=== PATIENT | female | born 1950 | race Caucasian/White ===

== ENCOUNTER 2021-08-06 15:35 | Emergency (ER) | payer MEDICARE ==
[~2021-08-06] VITALS: Ht 160 cm; Wt 108.9 kg
[2021-08-06 16:12] LABS: BASOPHILS % 0.5 % (0.0-1.0); EOSINOPHILS # (AUTO) 0.2 (0.0-0.4); EOSINOPHILS % 2.8 % (0.0-6.0); HEMATOCRIT 39.7 % (34.2-44.1); HEMOGLOBIN 12.7 g/dL (12.0-16.0); LYMPHOCYTES # (AUTO) 1.2 (1.0-3.2); LYMPHOCYTES % 15.4 % (18.0-39.1); MEAN CORPUSCULAR HEMOGLOBIN 28.9 pg (28-32); MEAN CORPUSCULAR VOLUME 90.4 fL (81-99); MONOCYTES # (AUTO) 0.7 (0.2-0.8); MONOCYTES % 8.4 % (4.4-11.3); NEUTROPHILS # (AUTO) 5.8 (2.1-6.9); NEUTROPHILS % 72.5 % (38.7-80.0); PLATELET COUNT 266 x10e3/uL (140-360); RED BLOOD COUNT 4.39 x10e6/uL (3.6-5.1); RED CELL DISTRIBUTION WIDTH 13.6 % (11.7-14.4)
[2021-08-06 16:32] LABS: ALBUMIN 3.7 g/dL (3.5-5.0); ANION GAP 14.4 mmol/L (8-16); CALCIUM 9.1 mg/dL (8.4-10.2); CREATININE, SERUM 0.89 mg/dL (0.57-1.11); POTASSIUM 3.4 mmol/L (3.5-5.1)
[2021-08-06 17:16] LABS: CLARITY,URINE CLEAR (CLEAR); COLOR,URINE YELLOW (YELLOW); KETONES,URINE NEGATIVE (NEGATIVE); LEUKOCYTE ESTERASE ,URINE NEGATIVE (NEGATIVE); NITRITE,URINE NEGATIVE (NEGATIVE); PROTEIN,URINE DIPSTICK NEGATIVE (NEGATIVE); URINE UROBILINOGEN 0.2 mg/dL (0.2 - 1)
[2021-08-06 17:27] LABS: BACTERIA,URINE FEW /HPF
[2021-08-06 17:28] LABS: EPITHELIAL CELLS,URINE MODERATE /LPF
[2021-08-06 20:36] VITALS: BP 155/65
== END 2021-08-06 19:15 | disposition home or self-care (01) ==
LOC: ER 15:51
DX: R42 Dizziness and giddiness (principal); R73.9 Hyperglycemia, unspecified; I10 Essential (primary) hypertension; Z85.3 Personal history of malignant neoplasm of breast
CPT/HCPCS: 36415; 70450; 80053; 81001; 83880; 84484; 85025; 93005; 99284

== ENCOUNTER 2022-01-10 01:15 | Emergency (ER) | payer MEDICARE ==
[~2022-01-10] VITALS: Ht 160 cm; Wt 108.9 kg
[2022-01-10] MEDS ORDERED: HYDRALAZINE HCL 10 MG TAB PO ONE (02:15)
[2022-01-10 02:35] VITALS: BP 169/74
== END 2022-01-10 02:41 | disposition home or self-care (01) ==
LOC: ER 01:19
DX: I10 Essential (primary) hypertension (principal); R07.89 Other chest pain; R73.03 Prediabetes; Z85.3 Personal history of malignant neoplasm of breast
CPT/HCPCS: 93005; 99282

== ENCOUNTER 2023-04-27 09:32 | Observation (INO) | payer MEDICARE ==
[~2023-04-27] VITALS: Ht 160 cm; Wt 108.9 kg
[2023-04-27] MEDS ORDERED: METOPROLOL TARTRATE INJ 1 MG/ML VIAL IV ONE (10:00)
[2023-04-27] MEDS ORDERED: DILTIAZEM HCL 5 MG/ML 5 ML VIAL IV ONE (10:00)
[2023-04-27] MEDS ORDERED: SODIUM CHLORIDE FLUSH 10 ML SYR IV PRN (10:00)
[2023-04-27 10:20] LABS: BASOPHILS % 0.4 % (0.0-1.0); EOSINOPHILS # (AUTO) 0.3 (0.0-0.4); EOSINOPHILS % 3.1 % (0.0-6.0); HEMATOCRIT 33.4 % (34.2-44.1); HEMOGLOBIN 11.2 g/dL (12.0-16.0); LYMPHOCYTES # (AUTO) 1.3 (1.0-3.2); MEAN CORPUSCULAR HEMOGLOBIN 28.8 pg (28-32); MEAN CORPUSCULAR HGB CONC 33.5 g/dL (31-35); MEAN CORPUSCULAR VOLUME 85.9 fL (81-99); MONOCYTES # (AUTO) 1.2 (0.2-0.8); MONOCYTES % 12.4 % (4.4-11.3); NEUTROPHILS # (AUTO) 6.5 (2.1-6.9); NEUTROPHILS % 69.4 % (38.7-80.0); PLATELET COUNT 349 x10e3/uL (140-360); RED BLOOD COUNT 3.89 x10e6/uL (3.6-5.1); RED CELL DISTRIBUTION WIDTH 14.6 % (11.7-14.4)
[2023-04-27 10:42] LABS: ALBUMIN 2.7 g/dL (3.5-5.0); ALBUMIN/GLOBULIN RATIO 0.8 (0.8-2.0); ANION GAP 18.8 mmol/L (8-16); CALCIUM 7.9 mg/dL (8.4-10.2); CREATININE, SERUM 0.78 mg/dL (0.57-1.11); POTASSIUM 3.8 mmol/L (3.5-5.1)
[2023-04-27] MEDS ORDERED: SODIUM CHLORIDE FLUSH 10 ML SYR INJ PRN (11:30)
[2023-04-27] MEDS ORDERED: ONDANSETRON HCL INJ 2MG/ML 2ML 2 MG/ML VIAL IV PRN (11:30)
[2023-04-27] MEDS ORDERED: ASPIRIN 81 MG CHEW TAB PO ONE (11:30)
[2023-04-27 15:30] VITALS: BP 140/65; PULSE 99; RESP 16; TEMP 97.9; O2SAT 99
[2023-04-27 17:41] VITALS: BP 151/92; PULSE 86; RESP 16; TEMP 97.9; O2SAT 99
[2023-04-27 19:33] VITALS: BP 151/92; PULSE 86; RESP 16; TEMP 97.9; O2SAT 99
[2023-04-27 20:00] VITALS: BP 176/97; PULSE 73; RESP 20; TEMP 97.7; O2SAT 100
[2023-04-27] MEDS ORDERED: AMIODARONE HCL200 MG PO (20:09)
[2023-04-27] MEDS ORDERED: METOPROLOL TART50 MG PO (20:09)
[2023-04-27] MEDS ORDERED: ATORVASTATIN CA20 MG PO (20:09)
[2023-04-27] MEDS ORDERED: FUROSEMIDE40 MG PO (20:09)
[2023-04-27] MEDS ORDERED: DIGOXIN125 MCG PO (20:09)
[2023-04-27] MEDS ORDERED: D3-5000125 MCG (20:09)
[2023-04-27] MEDS ORDERED: ELIQUIS5 MG PO (20:09)
[2023-04-27] MEDS ORDERED: [UNRECOGNIZED DRUG - OTHER] (20:09)
[2023-04-27] MEDS ORDERED: VITAMIN B-121000 MC2 PO (20:09)
[2023-04-27] MEDS ORDERED: VITAMIN D32400 UNIT/ (20:09)
[2023-04-27] MEDS ORDERED: PROTONIX20 MG PO (20:09)
[2023-04-27 21:00] VITALS: BP 176/97; PULSE 73; RESP 20; TEMP 97.7; O2SAT 100
[2023-04-28 04:00] VITALS: BP 128/75; PULSE 75; RESP 16; TEMP 97.9; O2SAT 98
[2023-04-28 06:13] LABS: BASOPHILS # (AUTO) 0.1 (0.0-0.1); BASOPHILS % 0.6 % (0.0-1.0); EOSINOPHILS # (AUTO) 0.4 (0.0-0.4); EOSINOPHILS % 4.1 % (0.0-6.0); HEMATOCRIT 35.2 % (34.2-44.1); HEMOGLOBIN 11.2 g/dL (12.0-16.0); LYMPHOCYTES # (AUTO) 1.6 (1.0-3.2); LYMPHOCYTES % 18.2 % (18.0-39.1); MEAN CORPUSCULAR HEMOGLOBIN 28.5 pg (28-32); MEAN CORPUSCULAR HGB CONC 31.8 g/dL (31-35); MEAN CORPUSCULAR VOLUME 89.6 fL (81-99); MONOCYTES % 11.5 % (4.4-11.3); NEUTROPHILS # (AUTO) 5.7 (2.1-6.9); NEUTROPHILS % 64.9 % (38.7-80.0); PLATELET COUNT 342 x10e3/uL (140-360); RED BLOOD COUNT 3.93 x10e6/uL (3.6-5.1); RED CELL DISTRIBUTION WIDTH 14.5 % (11.7-14.4)
[2023-04-28 07:21] LABS: ALBUMIN 2.8 g/dL (3.5-5.0); ALBUMIN/GLOBULIN RATIO 0.9 (0.8-2.0); ANION GAP 17.1 mmol/L (8-16); CALCIUM 8.1 mg/dL (8.4-10.2); CREATININE, SERUM 0.69 mg/dL (0.57-1.11); POTASSIUM 3.1 mmol/L (3.5-5.1)
[2023-04-28 08:14] VITALS: BP 161/80; PULSE 75; RESP 19; TEMP 97.8; O2SAT 100
[2023-04-28] MEDS: CYANOCOBALAMIN 1,000 MCG TAB PO SCH (09:44)
[2023-04-28] MEDS: APIXABAN 5 MG TABLET PO SCH ×2 (09:45→16:14)
[2023-04-28] MEDS: PANTOPRAZOLE SOD 40 MG TABEC PO SCH (09:46)
[2023-04-28] MEDS: DIGOXIN 0.125 MG TAB PO SCH (09:46)
[2023-04-28] MEDS: METOPROLOL TARTRATE 50 MG TAB PO SCH ×2 (09:46→16:14)
[2023-04-28] MEDS: FUROSEMIDE 40 MG TAB PO SCH (09:46)
[2023-04-28] MEDS: AMIODARONE HCL 200 MG TAB PO SCH ×2 (09:46→16:14)
[2023-04-28] MEDS ORDERED: HYDRALAZINE HCL 20 MG/ML VIAL IV PRN (10:45)
[2023-04-28 11:41] VITALS: BP 100/68; PULSE 68; RESP 17; TEMP 98.4; O2SAT 100
[2023-04-28] MEDS ORDERED: POTASSIUM CHLORIDE 20 MEQ TAB CR PO ONE (12:45)
[2023-04-28] MEDS ORDERED: ACETAMINOPHEN/CODEINE 300MG - 30MG TAB PO PRN (13:00)
[2023-04-28] MEDS ORDERED: ACETAMINOPHEN 325 MG TAB PO PRN (13:00)
[2023-04-28] MEDS ORDERED: POTASSIUM BICARBONATE/CIT AC 20 MEQ TABLET.EFF PO ONE (13:30)
[2023-04-28] MEDS ORDERED: ONDANSETRON HCL 4 MG ORAL DISINTEGRATING TAB PO PRN (13:30)
[2023-04-28 15:49] VITALS: BP 146/75; PULSE 79; RESP 17; TEMP 98.1; O2SAT 99
[2023-04-28 20:00] VITALS: BP 139/75; PULSE 71; RESP 18; TEMP 97.8; O2SAT 98
[2023-04-28] MEDS ORDERED: ATORVASTATIN 40 MG TAB PO SCH (21:00)
[2023-04-29] VITALS: BP 142/78; PULSE 76; RESP 17; TEMP 98.4; O2SAT 100
[2023-04-29 04:56] VITALS: BP 149/71; PULSE 81; RESP 17; TEMP 98.1; O2SAT 97
[2023-04-29 07:53] LABS: BASOPHILS % 0.3 % (0.0-1.0); EOSINOPHILS # (AUTO) 0.2 (0.0-0.4); EOSINOPHILS % 1.8 % (0.0-6.0); HEMATOCRIT 36.4 % (34.2-44.1); HEMOGLOBIN 11.9 g/dL (12.0-16.0); LYMPHOCYTES # (AUTO) 1.6 (1.0-3.2); LYMPHOCYTES % 16.9 % (18.0-39.1); MEAN CORPUSCULAR HEMOGLOBIN 29.1 pg (28-32); MEAN CORPUSCULAR HGB CONC 32.7 g/dL (31-35); MONOCYTES # (AUTO) 0.8 (0.2-0.8); MONOCYTES % 8.3 % (4.4-11.3); NEUTROPHILS # (AUTO) 6.9 (2.1-6.9); NEUTROPHILS % 72.2 % (38.7-80.0); PLATELET COUNT 368 x10e3/uL (140-360); RED BLOOD COUNT 4.09 x10e6/uL (3.6-5.1); RED CELL DISTRIBUTION WIDTH 14.5 % (11.7-14.4)
[2023-04-29 08:18] LABS: CALCIUM 7.9 mg/dL (8.4-10.2); CREATININE, SERUM 0.66 mg/dL (0.57-1.11)
[2023-04-29 08:23] VITALS: BP 155/62; PULSE 71; RESP 16; TEMP 98; O2SAT 98
[2023-04-29 08:56] VITALS: BP 155/62; PULSE 71; RESP 16; TEMP 98; O2SAT 98
[2023-04-29] MEDS: APIXABAN 5 MG TABLET PO SCH (09:59)
[2023-04-29] MEDS: CYANOCOBALAMIN 1,000 MCG TAB PO SCH (09:59)
[2023-04-29] MEDS: DIGOXIN 0.125 MG TAB PO SCH (09:59)
[2023-04-29] MEDS: METOPROLOL TARTRATE 50 MG TAB PO SCH (09:59)
[2023-04-29] MEDS: AMIODARONE HCL 200 MG TAB PO SCH (09:59)
[2023-04-29] MEDS: PANTOPRAZOLE SOD 40 MG TABEC PO SCH (09:59)
[2023-04-29] MEDS: FUROSEMIDE 40 MG TAB PO SCH (09:59)
[2023-04-29 12:25] VITALS: BP 144/83; PULSE 87; RESP 16; TEMP 98.4; O2SAT 100
[2023-04-29 16:47] VITALS: BP 149/77; PULSE 72; RESP 16; TEMP 98.1; O2SAT 100
== END 2023-04-29 17:28 | disposition home or self-care (01) ==
LOC: ER 09:45 → ERHOLD 11:20 → MED/SURG2 14:42
PROVIDERS: ADMIT Internal Medicine; ATTEND Internal Medicine
DX: I48.0 Paroxysmal atrial fibrillation (principal); I10 Essential (primary) hypertension; E87.6 Hypokalemia; B34.2 Coronavirus infection, unspecified; Z85.3 Personal history of malignant neoplasm of breast; Z86.718 Personal history of other venous thrombosis and embolism; Z79.01 Long term (current) use of anticoagulants; Z98.84 Bariatric surgery status
CPT/HCPCS: 36415 ×3; 71045; 80048; 80053 ×2; 82550 ×2; 82948 ×3; 83880; 84484 ×2; 85025 ×3; 93005; 93306; 99284; G0378 ×3; S0164 ×2; U0002